=== PATIENT | female | born 1995 | race Two or more races ===

== ENCOUNTER 2017-12-31 22:55 | Emergency (ER) | payer MEDICAID, OTHER | END 2017-12-31 23:25 | disposition left against medical advice (07) | LOC: ER 22:55 | DX: R07.9 Chest pain, unspecified (principal); Z53.21 Procedure and treatment not carried out due to patient leaving prior to being seen by health care provider ==

== ENCOUNTER 2021-06-03 12:24 | Emergency (ER) | payer MEDICAID ==
[~2021-06-03] VITALS: Ht 160 cm; Wt 45.0 kg
[2021-06-03 12:25] VITALS: BP 129/72
[2021-06-03] MEDS ORDERED: IBUPROFEN 400MG TABLET PO ONE (13:00)
== END 2021-06-03 15:58 | disposition left against medical advice (07) ==
LOC: ER 12:24
DX: R07.89 Other chest pain (principal); Z53.21 Procedure and treatment not carried out due to patient leaving prior to being seen by health care provider
CPT/HCPCS: 71045; 93005; 99283